=== PATIENT | male | born 1930 | race Caucasian/White ===

== ENCOUNTER 2017-10-18 13:02 | Emergency (ER) | payer MEDICARE, BC ==
[~2017-10-18] VITALS: Ht 177.8 cm; Wt 80.7 kg
[2017-10-18 13:35] VITALS: BP 154/84
[2017-10-18] MEDS ORDERED: LIDOCAINE 1% INJ 50 ML MDV IJ ONE (14:25)
[2017-10-18] MEDS ORDERED: LIDOCAINE 1%-EPI 1:100,000 50 ML VIAL IJ ONE (14:30)
== END 2017-10-18 15:36 | disposition home or self-care (01) ==
LOC: ER 13:21
DX: S01.111A Laceration without foreign body of right eyelid and periocular area, initial encounter (principal); G20 Parkinson's disease; J45.909 Unspecified asthma, uncomplicated; W01.0XXA Fall on same level from slipping, tripping and stumbling without subsequent striking against object, initial encounter; Y93.89 Activity, other specified; Y92.89 Other specified places as the place of occurrence of the external cause; Y99.8 Other external cause status
CPT/HCPCS: 12013; 99283; A4606; A6403; J3490; Z7610